=== PATIENT | male | born 1970 | race Caucasian/White ===

== ENCOUNTER → 2021-01-17 | Outpatient (CLI) | payer BC ==
--- NOTE | 2021-01-17 11:24 | KCIC ---
MRI study of the left hip without contrast Clinical indications: Left hip pain. Stabbing pain walking up hills and stairs. Left hip flexor tendo n tightness and weakness. TECHNIQUE: Noncontrast MRI sequences of the left hip were performed in all 3 planes. Additional STIR coronal sequence of both hips was performed for comparison. FINDINGS: No avascular necrosis or marrow infiltrative process or bone contusion or fracture is evide nt. There is mild degenerative spurring of the left hip joint. There is mild chondromalacia of the chisholm perior-lateral aspect of the left hip joint without significant articular cartilage defect. No signif icant left hip joint effusion is seen. No loose body is evident. The acetabular labrum is intact. No paralabral ganglion cyst is seen. The gluteal tendons are intact and no greater trochanteric bursitis is seen. The iliopsoas tendon is intact and no iliopsoas bursitis is seen. The conjoined hamstring t endon is intact and no ischial tuberosity bursitis is seen. No muscle edema is seen. No soft tissue m ass or hematoma is seen. STIR coronal sequence demonstrates no avascular necrosis of the opposite right femoral head and no terra ne marrow edema of the upper sacrum is seen on either side. 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 No other significant abno rmality. Electronically signed by: Norman Jimenes MD (01/17/2021 11:22 AM) [place] [id number]
--- NOTE | 2021-01-17 11:36 | KCIC ---
MRI study of the right shoulder without contrast Clinical indications: Right shoulder pain. Pain after injury one year ago. TECHNIQUE: Noncontrast MRI sequences of the right shoulder were performed in all 3 planes. FINDINGS: There is tendinosis of the supraspinatus tendon. No rotator cuff tear is evident. The subsc apularis tendon is intact. The tendon of the long of the biceps is intact. No muscle atrophy or muscl e edema is seen. There is mild degenerative osteoarthritis and spurring of the AC joint. There is mil d spurring of the lateral inferior edge of the acromial process. A type III acromial process is seen. These findings may impinge the acromial humeral space. There is mild chronic cystic change of the po sterior lateral aspect of the humeral head secondary to chronic impingement. No other marrow infiltra tive process is seen. No fracture or bone contusion is evident. No subdeltoid or subacromial bursitis is seen. The glenohumeral joint is unremarkable and no abnormal joint effusion is seen. No loose bod y is evident. The glenoid labrum is intact. No paralabral ganglion cyst or spinoglenoid notch ganglio n cyst is seen. IMPRESSION: Tendinosis of the supraspinatus tendon. No rotator cuff tear is seen. Mild impingement of the acromial humeral space. Electronically signed by: Norman Jimenes MD (01/17/2021 11:34 AM) [id number]
== END ==
LOC: KCIC MRI 07:54
PROVIDERS: ATTEND Orthopaedic Surgery
DX: M16.12 Unilateral primary osteoarthritis, left hip (principal); M77.8 Other enthesopathies, not elsewhere classified
CPT/HCPCS: 73221; 73721